=== PATIENT | female | born 1925 | race Caucasian/White ===

== ENCOUNTER 2016-03-20 22:34 | Emergency (ER) | payer OTHER ==
[~2016-03-20] VITALS: Ht 165.1 cm; Wt 62.7 kg
[~2016-03-20 22:34] MED LIST: APRESOLINE25 MG PO; ASPIR-LOW81 MG PO; ASPIRIN325 MG PO; ATIVAN0.5 MG PO; ATIVAN1 MG PO; ATIVAN2 MG PO; ATORVASTATIN CA40 MG PO; Apresoline PO; Aspirin E.C. PO; Ativan PO; BENICAR20 MG PO; BENICAR40 MG PO; BETHANECHOL CHL25 MG PO; BMP 0; CEPHALEXIN500 MG PO; CLOPIDOGREL75 MG PO; COUMADIN2.5 MG PO; DILTIAZEM 24HR240 MG PO; DILTIAZEM 24HR360 MG PO; ELIQUIS2.5 MG PO; ENALAPRIL MALEAT5 MG PO; FUROSEMIDE40 MG PO; HYDRALAZINE HCL50 MG PO; HYDROCHLOROTHIA25 MG PO; Imdur PO; K-DUR20 MEQ PO; LASIX20 MG PO; LIDOCAINE700 MG TD; LIPITOR20 MG PO; LIPITOR40 MG PO; LIPITOR80 MG PO; LISINOPRIL2.5 MG PO; LO-DOSE ASPIRIN81 M2 PO; LORAZEPAM2 MG PO; METOPROLOL TART25 MG PO; MINIPRES1 MG PO; MUCINEX600 MG PO; NIFEDIPINE ER30 MG PO; NIFEDIPINE ER60 MG PO; PLAVIX75 MG PO; PROCARDIA XL30 MG PO; PROTONIX40 MG PO; PROZAC10 MG PO; Procardia XL,Adalat PO; RANEXA500 MG PO; SPIRONOLACTONE25 MG PO; TAZTIA XT360 MG PO; TRAMADOL HCL50 MG PO; ULTRAM50 MG PO; Zocor PO
[2016-03-20 22:44] VITALS: BP 197/87
[2016-03-20 23:42] LABS: HEMATOCRIT 32.3 % (36.0-46.0); MCHC 32.8 G/DL (30.0-36.0); MCV 88.3 FL (83-99); PLATELET COUNT 220 K/uL (156-360); RBC DIS.WIDTH-CV 14.6 % (11.8-14.6); RBC DIS.WIDTH-SD 46.8 % (39-53); RED BLOOD COUNT 3.66 M/uL (3.80-5.20); WHITE BLOOD COUNT 8.6 K/uL (4.1-10.2)
[2016-03-20 23:43] LABS: CHLORIDE 108 mEq/L (99-109); POTASSIUM 3.4 mEq/L (3.7-5.4); SODIUM 144 mEq/L (136-147)
[2016-03-20 23:44] LABS: GLUCOSE 95 mg/dL (70-99)
[2016-03-20 23:46] LABS: ANION GAP 11 MEQ/L (2-14)
[2016-03-20 23:48] LABS: GFR ESTIMATE (CALCULATED) 35 mL/min/
[2016-03-20 23:49] LABS: UREA NITROGEN (BUN) 31 mg/dL (9-23)
[2016-03-20 23:56] LABS: TROP-I INTERPRETATION NEGATIVE; TROPONIN-I 0.03 ng/mL (0.0-0.30)
== END 2016-03-21 00:54 | disposition left against medical advice (07) ==
LOC: EME 22:34
DX: R07.89 Other chest pain (principal); R06.02 Shortness of breath; R53.1 Weakness; Z53.21 Procedure and treatment not carried out due to patient leaving prior to being seen by health care provider
CPT/HCPCS: 71020; 80048; 84484; 85027; 93005

== ENCOUNTER 2017-01-29 08:52 | Inpatient (IN) | payer OTHER ==
[~2017-01-29] VITALS: Ht 167.6 cm; Wt 66.0 kg
[2017-01-29 10:02] LABS: EOSINOPHIL (%) 0.6 % (0-5); EOSINOPHIL COUNT 0.1 K/uL (0-0.3); HEMATOCRIT 43.4 % (36.0-46.0); IMMATURE GRANULOCYTE (%) 0.2 % (0.0-0.7); INSTRUMENT ABS NEUTROPHIL CT 5.1 K/uL; LYMPHOCYTE COUNT 2.2 K/uL (1.0-2.8); MCH 30.2 PG (29.0-34.0); MCHC 33.6 G/DL (30.0-36.0); MCV 89.7 FL (83-99); MEAN PLAT.VOLUME 9.4 uM^3 (9.5-12.4); MONOCYTE (%) 9.2 % (3-12); MONOCYTE COUNT 0.8 K/uL (0-0.8); NEUTROPHIL (%) 62.3 % (45-76); NEUTROPHIL COUNT 5.1 K/uL (1.8-6.4); PLATELET COUNT 263 K/uL (156-360); RBC DIS.WIDTH-CV 14.1 % (11.8-14.6); RBC DIS.WIDTH-SD 45.8 % (39-53); RED BLOOD COUNT 4.84 M/uL (3.80-5.20); WHITE BLOOD COUNT 8.2 K/uL (4.1-10.2)
[2017-01-29 10:11] LABS: CHLORIDE 99 mEq/L (99-109); POTASSIUM 2.9 mEq/L (3.7-5.4); SODIUM 144 mEq/L (136-147)
[2017-01-29 10:13] LABS: GLUCOSE 111 mg/dL (70-99)
[2017-01-29 10:14] LABS: ANION GAP 18 MEQ/L (2-14)
[2017-01-29 10:14] LABS: ADD MIUA? YES; BILIRUBIN NEGATIVE; BLOOD SMALL; COLOR YELLOW ((YELLOW)); GLUCOSE (STRIP) NEGATIVE; KETONES NEGATIVE; LEUKOCYTES TRACE; NITRITE NEGATIVE; PROTEIN (STRIP) 30; SPECIFIC GRAVITY 1.009 (1.000-1.030); UROBILINOGEN 0.2 MG/DL (0.2-1.0)
[2017-01-29 10:17] LABS: GFR ESTIMATE (CALCULATED) 20 mL/min/; UREA NITROGEN (BUN) 45 mg/dL (9-23)
[2017-01-29 10:23] LABS: TROP-I INTERPRETATION NEGATIVE; TROPONIN-I 0.04 ng/mL (0.0-0.30)
[2017-01-29 10:31] LABS: BACTERIA RARE /HPF; EPITHELIAL CELLS RARE /HPF; MUCUS TRACE /LPF; RED BLOOD CELLS 0-5 /HPF (0-5); UCUL ADDED? NO; WHITE BLOOD CELLS 0-5 /HPF (0-5)
[2017-01-29] MEDS ORDERED: ASPIR-LOW81 MG PO (12:18)
[2017-01-29] MEDS ORDERED: FUROSEMIDE20 MG PO (12:30)
[2017-01-29] MEDS ORDERED: VITAMIN D2000 UNIT PO (12:39)
[2017-01-29] MEDS ORDERED: POTASSIUM CHLO10 ME4 PO (12:39)
[2017-01-29 15:49] VITALS: BP 149/69
[2017-01-29 16:40] LABS: TROP-I INTERPRETATION NEGATIVE; TROPONIN-I 0.06 ng/mL (0.0-0.30)
[2017-01-29 17:20] LABS: MAGNESIUM 1.8 mg/dl (1.3-2.7); SAMPLE HEMOLYSIS CHECK 0; SAMPLE ICTERIC CHECK 0; SAMPLE LIPEMIA CHECK 0
[2017-01-29 19:52] VITALS: BP 171/69
[2017-01-29 23:15] LABS: TROP-I INTERPRETATION NEGATIVE; TROPONIN-I 0.05 ng/mL (0.0-0.30)
[2017-01-29 23:58] VITALS: BP 112/75
[2017-01-30 03:44] VITALS: BP 142/71
[2017-01-30 05:36] VITALS: BP 144/72
[2017-01-30 06:52] LABS: HEMATOCRIT 37.2 % (36.0-46.0); MCH 30.2 PG (29.0-34.0); MCHC 33.6 G/DL (30.0-36.0); MCV 89.9 FL (83-99); MEAN PLAT.VOLUME 9.6 uM^3 (9.5-12.4); PLATELET COUNT 221 K/uL (156-360); RBC DIS.WIDTH-CV 14.4 % (11.8-14.6); RBC DIS.WIDTH-SD 47.8 % (39-53); RED BLOOD COUNT 4.14 M/uL (3.80-5.20); WHITE BLOOD COUNT 7.2 K/uL (4.1-10.2)
[2017-01-30 07:17] LABS: ANION GAP 9 MEQ/L (2-14); CHLORIDE 108 MEQ/L (99-109); GFR ESTIMATE (CALCULATED) 28 mL/min/; GLUCOSE 98 mg/dL (70-99); POTASSIUM 3.5 MEQ/L (3.7-5.4); SAMPLE HEMOLYSIS CHECK 0; SAMPLE ICTERIC CHECK 0; SAMPLE LIPEMIA CHECK 0; SODIUM 145 MEQ/L (136-147); UREA NITROGEN (BUN) 40 mg/dL (9-23)
[2017-01-30 07:57] VITALS: BP 161/84
[2017-01-30 16:22] VITALS: BP 160/76
[2017-01-30 20:09] VITALS: BP 128/68
[2017-01-30 23:57] VITALS: BP 162/69
[2017-01-31 04:06] VITALS: BP 152/64
[2017-01-31 06:57] LABS: ANION GAP 8 MEQ/L (2-14); CHLORIDE 110 MEQ/L (99-109); GFR ESTIMATE (CALCULATED) 32 mL/min/; GLUCOSE 96 mg/dL (70-99); POTASSIUM 3.5 MEQ/L (3.7-5.4); SAMPLE HEMOLYSIS CHECK 0; SAMPLE ICTERIC CHECK 0; SAMPLE LIPEMIA CHECK 0; SODIUM 144 MEQ/L (136-147); UREA NITROGEN (BUN) 40 mg/dL (9-23)
[2017-01-31 07:43] VITALS: BP 161/73
[2017-01-31] MEDS ORDERED: APRESOLINE25 MG PO (10:52)
== END 2017-01-31 12:02 | disposition home or self-care (01) | DRG 683 ==
LOC: EME → EDBD 08:52 → EDOF 11:14 → 5SOUTH 11:14 → ENRESERV 11:15 → 5SOUTH 12:45 → ENPENDDIS 01-31 → 5SOUTH 01-31 12:02
PROVIDERS: Emergency Medicine; Internal Medicine; Physician Assistant Medical
DX: N17.1 Acute kidney failure with acute cortical necrosis (principal); I13.10 Hypertensive heart and chronic kidney disease without heart failure, with stage 1 through stage 4 chronic kidney disease, or unspecified chronic kidney disease; N18.3 Chronic kidney disease, stage 3 (moderate); I50.42 Chronic combined systolic (congestive) and diastolic (congestive) heart failure; E86.0 Dehydration; E86.1 Hypovolemia; E87.6 Hypokalemia; T50.2X5A Adverse effect of carbonic-anhydrase inhibitors, benzothiadiazides and other diuretics, initial encounter; I49.3 Ventricular premature depolarization; I34.0 Nonrheumatic mitral (valve) insufficiency; I25.10 Atherosclerotic heart disease of native coronary artery without angina pectoris; E78.5 Hyperlipidemia, unspecified; R80.9 Proteinuria, unspecified; F41.9 Anxiety disorder, unspecified; I25.2 Old myocardial infarction; Z95.1 Presence of aortocoronary bypass graft; Z98.61 Coronary angioplasty status; Z79.01 Long term (current) use of anticoagulants; Z79.02 Long term (current) use of antithrombotics/antiplatelets; Z86.73 Personal history of transient ischemic attack (TIA), and cerebral infarction without residual deficits
CPT/HCPCS: 71010; 80048; 81003; 83735; 84443; 84484; 85025; 85027; 85379; 93005; 93306; J1644; J7030; J7040

== ENCOUNTER 2017-10-05 07:14 | Inpatient (IN) | payer OTHER ==
[~2017-10-05] VITALS: Ht 165.1 cm; Wt 67.3 kg
[~2017-10-05 07:14] MED LIST changes: +FUROSEMIDE20 MG PO; +POTASSIUM CHLO10 ME4 PO; +VITAMIN D2000 UNIT PO
[2017-10-05 08:18] LABS: BASOPHIL (%) 0.4 % (0-1); BASOPHIL COUNT 0.1 K/uL (0-0.1); EOSINOPHIL (%) 0.5 % (0-5); EOSINOPHIL COUNT 0.1 K/uL (0-0.3); HEMOGLOBIN 12.6 G/DL (11.9-15.5); IMMATURE GRANULOCYTE (%) 0.2 % (0.0-0.7); LYMPHOCYTE (%) 12.6 % (15-42); LYMPHOCYTE COUNT 1.6 K/uL (1.0-2.8); MCH 31.2 PG (29.0-34.0); MCHC 34.1 G/DL (30.0-36.0); MCV 91.6 FL (83-99); MONOCYTE (%) 6.8 % (3-12); MONOCYTE COUNT 0.9 K/uL (0-0.8); NEUTROPHIL (%) 79.5 % (45-76); NEUTROPHIL COUNT 10.4 K/uL (1.8-6.4); PLATELET COUNT 203 K/uL (156-360); RBC DIS.WIDTH-CV 14.1 % (11.8-14.6); RBC DIS.WIDTH-SD 47.7 % (39-53); RED BLOOD COUNT 4.04 M/uL (3.80-5.20)
[2017-10-05 08:27] LABS: CHLORIDE 109 mEq/L (99-109); POTASSIUM 4.1 mEq/L (3.7-5.4); SODIUM 141 mEq/L (136-147)
[2017-10-05 08:29] LABS: GLUCOSE 107 mg/dL (70-99)
[2017-10-05 08:33] LABS: CREATININE 1.8 mg/dL (0.6-1.3); GFR ESTIMATE (CALCULATED) 28 mL/min/
[2017-10-05 08:34] LABS: UREA NITROGEN (BUN) 28 mg/dL (9-23)
[2017-10-05 08:40] LABS: TROP-I INTERPRETATION NEGATIVE; TROPONIN-I 0.02 ng/mL (0.0-0.30)
[2017-10-05 09:35] LABS: O2 FLOW 50 L/MIN; SITE LR
[2017-10-05 09:36] LABS: BASE EXCESS -4.3 mEq/L (-3 to +3); BICARBONATE 20.1 mEq/L (22-26); CARBOXY HGB 1.6 % (0-5); DEVICE HHFNC; FI02 100 %; METHEMOGLOBIN 1.1 % (0-1.5); O2 SATURATION (CALCULATED) 96.6 % (95-99); PCO2 34 mm Hg (35-45); PO2 98 mm Hg (80-100); pH 7.38 (7.35-7.45)
[2017-10-05 11:07] VITALS: BP 189/98
[2017-10-05 12:17] LABS: APPEARANCE CLEAR ((CLEAR)); BILIRUBIN NEGATIVE; BLOOD SMALL; COLOR YELLOW ((YELLOW)); GLUCOSE (STRIP) NEGATIVE; KETONES NEGATIVE; LEUKOCYTES TRACE; NITRITE NEGATIVE; PROTEIN (STRIP) 100; SPECIFIC GRAVITY 1.012 (1.000-1.030); UROBILINOGEN 0.2 MG/DL (0.2-1.0)
[2017-10-05 12:23] LABS: BACTERIA NONE SEEN /HPF; EPITHELIAL CELLS 1+ /HPF; MUCUS TRACE /LPF; RED BLOOD CELLS 0-5 /HPF (0-5); UCUL ADDED? NO; WHITE BLOOD CELLS 0-5 /HPF (0-5)
[2017-10-05 14:26] LABS: TROP-I INTERPRETATION NEGATIVE; TROPONIN-I 0.05 ng/mL (0.0-0.30)
[2017-10-05] MEDS ORDERED: LORAZEPAM1 MG PO (14:50)
[2017-10-05] MEDS ORDERED: ADALAT CC 60 MG60 MG PO (14:52)
[2017-10-05 15:50] VITALS: BP 163/74
[2017-10-05 19:13] VITALS: BP 137/61
[2017-10-05 20:22] LABS: TROP-I INTERPRETATION NEGATIVE; TROPONIN-I 0.08 ng/mL (0.0-0.30)
[2017-10-05 22:53] VITALS: BP 134/56
[2017-10-06 03:51] VITALS: BP 133/72
[2017-10-06 05:34] LABS: BASOPHIL (%) 0.3 % (0-1); EOSINOPHIL (%) 0.7 % (0-5); EOSINOPHIL COUNT 0.1 K/uL (0-0.3); HEMATOCRIT 32.5 % (36.0-46.0); IMMATURE GRANULOCYTE (%) 0.2 % (0.0-0.7); LYMPHOCYTE (%) 24.1 % (15-42); LYMPHOCYTE COUNT 2.1 K/uL (1.0-2.8); MCH 30.6 PG (29.0-34.0); MCHC 33.8 G/DL (30.0-36.0); MCV 90.3 FL (83-99); MONOCYTE (%) 11.9 % (3-12); NEUTROPHIL (%) 62.8 % (45-76); NEUTROPHIL COUNT 5.5 K/uL (1.8-6.4); PLATELET COUNT 194 K/uL (156-360); RBC DIS.WIDTH-CV 14.2 % (11.8-14.6); RBC DIS.WIDTH-SD 46.7 % (39-53); WHITE BLOOD COUNT 8.7 K/uL (4.1-10.2)
[2017-10-06 05:56] LABS: CHLORIDE 104 MEQ/L (99-109); CREATININE 1.8 MG/DL (0.6-1.3); GFR ESTIMATE (CALCULATED) 28 mL/min/; GLUCOSE 103 mg/dL (70-99); POTASSIUM 3.4 MEQ/L (3.7-5.4); SODIUM 141 MEQ/L (136-147); UREA NITROGEN (BUN) 28 mg/dL (9-23)
[2017-10-06 06:24] LABS: APPEARANCE CLEAR ((CLEAR)); BILIRUBIN NEGATIVE; BLOOD SMALL; COLOR STRAW ((YELLOW)); GLUCOSE (STRIP) NEGATIVE; KETONES NEGATIVE; LEUKOCYTES NEGATIVE; NITRITE NEGATIVE; PROTEIN (STRIP) NEGATIVE; SPECIFIC GRAVITY 1.006 (1.000-1.030); UROBILINOGEN 0.2 MG/DL (0.2-1.0)
[2017-10-06 07:00] LABS: BACTERIA NONE SEEN /HPF; EPITHELIAL CELLS NONE SEEN /HPF; HYALINE CASTS 0-5 /LPF; MUCUS NONE SEEN /LPF; RED BLOOD CELLS 20-30 /HPF (0-5); WHITE BLOOD CELLS 0-5 /HPF (0-5)
[2017-10-06 07:17] VITALS: BP 140/56
[2017-10-06 10:02] LABS: TROP-I INTERPRETATION NEGATIVE; TROPONIN-I 0.05 ng/mL (0.0-0.30)
[2017-10-06 11:40] VITALS: BP 123/51
[2017-10-06 15:47] VITALS: BP 131/66
[2017-10-06 19:24] VITALS: BP 146/56
[2017-10-06 22:42] VITALS: BP 136/49
[2017-10-07 03:00] VITALS: BP 114/43
[2017-10-07 05:04] LABS: HEMATOCRIT 32.2 % (36.0-46.0); HEMOGLOBIN 10.8 G/DL (11.9-15.5); MCH 30.3 PG (29.0-34.0); MCHC 33.5 G/DL (30.0-36.0); MCV 90.4 FL (83-99); PLATELET COUNT 191 K/uL (156-360); RBC DIS.WIDTH-CV 13.9 % (11.8-14.6); RBC DIS.WIDTH-SD 46.6 % (39-53); RED BLOOD COUNT 3.56 M/uL (3.80-5.20); WHITE BLOOD COUNT 7.7 K/uL (4.1-10.2)
[2017-10-07 06:00] LABS: CHLORIDE 104 MEQ/L (99-109); CREATININE 2.1 MG/DL (0.6-1.3); GFR ESTIMATE (CALCULATED) 24 mL/min/; GLUCOSE 102 mg/dL (70-99); MAGNESIUM 1.7 mg/dl (1.3-2.7); POTASSIUM 3.4 MEQ/L (3.7-5.4); SODIUM 143 MEQ/L (136-147); UREA NITROGEN (BUN) 35 mg/dL (9-23)
[2017-10-07 06:59] VITALS: BP 134/58
[2017-10-07 11:24] VITALS: BP 150/71
[2017-10-07 14:39] VITALS: BP 124/50
[2017-10-07 19:19] LABS: INTACT PARATHYROID HORMONE 106 pg/mL (10-69)
[2017-10-07 19:45] VITALS: BP 134/51
[2017-10-07 23:00] VITALS: BP 135/60
[2017-10-08 04:00] VITALS: BP 135/56
[2017-10-08 06:22] LABS: CHLORIDE 105 MEQ/L (99-109); GFR ESTIMATE (CALCULATED) 25 mL/min/; GLUCOSE 93 mg/dL (70-99); MAGNESIUM 1.8 mg/dl (1.3-2.7); POTASSIUM 3.5 MEQ/L (3.7-5.4); SODIUM 142 MEQ/L (136-147); UREA NITROGEN (BUN) 33 mg/dL (9-23)
[2017-10-08 07:20] VITALS: BP 155/65
[2017-10-08] MEDS ORDERED: FUROSEMIDE20 MG PO (11:11)
[2017-10-08] MEDS ORDERED: CLONIDINE1 EACH TD (11:11)
[2017-10-08 12:02] VITALS: BP 160/76
== END 2017-10-08 15:05 | disposition home or self-care (01) | DRG 189 ==
LOC: EME 07:14 → 4EAST 09:26 → EDOF 09:26 → ENRESERV 09:27 → 4EAST 10:58 → ENPENDDIS 10-08 → 4EAST 10-08 15:05
PROVIDERS: Hospitalist; Internal Medicine; Internal Medicine Nephrology; Nurse Practitioner Family
DX: J96.01 Acute respiratory failure with hypoxia (principal); I50.23 Acute on chronic systolic (congestive) heart failure; N18.6 End stage renal disease; N17.9 Acute kidney failure, unspecified; I13.2 Hypertensive heart and chronic kidney disease with heart failure and with stage 5 chronic kidney disease, or end stage renal disease; I25.810 Atherosclerosis of coronary artery bypass graft(s) without angina pectoris; I25.10 Atherosclerotic heart disease of native coronary artery without angina pectoris; E87.6 Hypokalemia; F43.21 Adjustment disorder with depressed mood; T50.1X5A Adverse effect of loop [high-ceiling] diuretics, initial encounter; F41.9 Anxiety disorder, unspecified; E78.5 Hyperlipidemia, unspecified; Z79.82 Long term (current) use of aspirin; Z86.73 Personal history of transient ischemic attack (TIA), and cerebral infarction without residual deficits; Z86.718 Personal history of other venous thrombosis and embolism; Z79.02 Long term (current) use of antithrombotics/antiplatelets; Z91.14 Patient's other noncompliance with medication regimen; Z91.11 Patient's noncompliance with dietary regimen; Z95.5 Presence of coronary angioplasty implant and graft
CPT/HCPCS: 36600; 71045; 71046; 80048; 81003; 82306; 83605; 83735; 83880; 83970; 84145 90; 84484; 85025; 85027; 87040; 87070; 87205; 87449; 93005; 94640; 94799; 99281; 99285; J0696; J1650; J1940